=== PATIENT | male | born 1965 | race Caucasian/White ===

== ENCOUNTER 2023-04-03 19:22 | Emergency (ER) | payer OTHER, MEDICAID, SELFPAY ==
--- NOTE | ~2023-04-03 | XR_ITS ---
X-RAY LUMBAR SPINE X-RAY SACRUM/COCCYX CLINICAL HISTORY: Pain. COMPARISON: Radiograph lumbar spine 12/17/2015. TECHNIQUE: 3 views of the lumbar spine. 2 views of the sacrum/coccyx. FINDINGS: Lumbar spine: No evidence of acute compression deformity or traumatic subluxation. Subtle lucency at the level of the spinous process of T12, not present when compared to x-ray from 12/17/2015. Mild intervertebral disc height loss at L5-S1. Moderate facet arthropathy at L5-S1 leading to some degree of neural foraminal encroachment. Prominent anterior osteophytes at L3 and L4. No significant paraspinal soft tissue abnormality. Sacrum/coccyx: No displaced fractures or subluxation. SI joints are symmetric. No significant soft tissue abnormality. XR/XR sacrum coccyx min 2V IMPRESSION: 1. Subtle lucency at the level of the spinous process of T12, not present when compared to x-ray from 12/17/2015. This could represent a nondisplaced fracture. Correlate for point tenderness and if indicated further evaluation with a CT or MR could be obtained. 2. No additional fractures. No traumatic subluxation. 3. Intervertebral disc height loss and facet arthropathy at L5-S1 leading to certain degree of neural foraminal encroachment.
--- NOTE | ~2023-04-03 | CT_ITS ---
EXAMINATION: CT THORACIC SPINE WITHOUT CONTRAST CLINICAL INFORMATION: Question of T12 fracture. Pain. COMPARISON: None available. TECHNIQUE: CT This CT examination was performed using dose optimization techniques as appropriate, variously including the following: *Automated exposure control *Adjustment of mA and/or kV according to patient size (this includes techniques or standardized protocols for targeted exams where dose is matched to indication/reason for exam; i.e. extremities or head) *Use of iterative reconstruction technique DLP: 612 mGy-cm FINDINGS: No acute fracture or traumatic malalignment. Vertebral body heights maintained. Tiny endplate osteophytes project anteriorly within the lower dressing spine. Disc space heights relatively preserved. No significant degenerative changes otherwise. Healed left posterior third and fourth rib fractures. Paraspinal soft tissues unremarkable. Lungs are clear. No pneumothorax or pleural effusion. Normal heart size. No pericardial effusion. No mediastinal or hilar lymphadenopathy. Imaged thyroid gland is normal. Patulous esophagus. Imaged abdominal viscera are unremarkable. CT/CT thoracic spine wo IV con IMPRESSION: * No acute fracture or traumatic malalignment. * Healed left posterior third and fourth rib fractures.
--- NOTE | ~2023-04-03 | XR_ITS ---
X-RAY LUMBAR SPINE X-RAY SACRUM/COCCYX CLINICAL HISTORY: Pain. COMPARISON: Radiograph lumbar spine 12/17/2015. TECHNIQUE: 3 views of the lumbar spine. 2 views of the sacrum/coccyx. FINDINGS: Lumbar spine: No evidence of acute compression deformity or traumatic subluxation. Subtle lucency at the level of the spinous process of T12, not present when compared to x-ray from 12/17/2015. Mild intervertebral disc height loss at L5-S1. Moderate facet arthropathy at L5-S1 leading to some degree of neural foraminal encroachment. Prominent anterior osteophytes at L3 and L4. No significant paraspinal soft tissue abnormality. Sacrum/coccyx: No displaced fractures or subluxation. SI joints are symmetric. No significant soft tissue abnormality. XR/XR lumbar spine 2-3V IMPRESSION: 1. Subtle lucency at the level of the spinous process of T12, not present when compared to x-ray from 12/17/2015. This could represent a nondisplaced fracture. Correlate for point tenderness and if indicated further evaluation with a CT or MR could be obtained. 2. No additional fractures. No traumatic subluxation. 3. Intervertebral disc height loss and facet arthropathy at L5-S1 leading to certain degree of neural foraminal encroachment.
--- NOTE | ~2023-04-03 | XR_ITS ---
EXAMINATION: XR CHEST CLINICAL INFORMATION: Chest pain. COMPARISON: Chest radiograph 12/17/2015. TECHNIQUE: 2 views of the chest were obtained. FINDINGS: No significant cardiomediastinal contour abnormality. Prominent left-sided epicardial fat pad. Focal airspace opacities in the medial right lower lung/right infrahilar region. No pleural effusion or pneumothorax. Left-sided posterolateral third and fourth rib fractures with some degree of callus formation suggesting a subacute to chronic age. XR/XR chest 2V IMPRESSION: 1. Focal airspace opacities in the medial right lower lung/right infrahilar region are nonspecific; these could be related with volume averaging or aspiration/infiltrate. 2. Subacute to chronic appearing left-sided rib fractures, correlate with point tenderness.
[2023-04-03 20:18] VITALS: BP 155/94; PULSE 98; RESP 18; TEMP 36.8; O2SAT 97; BMI 28.1
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
[2023-04-03 23:01] VITALS: BP 128/80; PULSE 92; RESP 18; TEMP 36.8; O2SAT 97
[2023-04-04 01:03] VITALS: BP 114/81; PULSE 94; RESP 14; TEMP 36.6; O2SAT 96
--- NOTE | 2023-04-04 01:07 | PC.NURSE ---
Pt alert and oriented x 4, no apparent distress. Discharge instructions reviewed with pt and medications reviewed. Pt verbalized understanding.
== END 2023-04-04 01:09 | disposition home or self-care (01) ==
PROVIDERS: Emergency Provider Emergency Medicine
DX: S39.012A Strain of muscle, fascia and tendon of lower back, initial encounter (principal); R07.89 Other chest pain; M54.6 Pain in thoracic spine; M53.3 Sacrococcygeal disorders, not elsewhere classified; V43.52XA Car driver injured in collision with other type car in traffic accident, initial encounter; Y93.9 Activity, unspecified; Y92.410 Unspecified street and highway as the place of occurrence of the external cause; Y99.9 Unspecified external cause status
CPT/HCPCS: 71046; 72100; 72128; 72220; 99283; 99284

== ENCOUNTER 2023-04-23 16:25 | Outpatient (REF) | payer OTHER, MEDICAID, SELFPAY ==
[2023-04-23 17:35] LABS: MANUAL DIFF FLAG NO
[2023-04-23 17:54] LABS: Basophils Absolute Auto 0.1 X10*3/uL (0.0-0.2); Basophils Percent Auto 0.5 % (0-2); Eosinophils Absolute Auto 0.2 X10*3/uL (0.0-0.4); Eosinophils Percent Auto 1.9 % (0-4); Hematocrit 50.3 % (42.0-52.0); Hemoglobin 16.3 g/dl (14.0-18.0); Imm Gran Abs Auto 0.05 X10*3/uL (0.00-0.03); Imm Gran Pct Auto 0.5 % (0.0-0.4); Lymphocytes Absolute Auto 1.2 X10*3/uL (1.2-4.9); Lymphocytes Percent Auto 10.8 % (20-40); Mean Corpuscular HGB Conc 32.4 g/dl (31.0-36.0); Mean Corpuscular Hemoglobin 27.6 pg (27.0-33.0); Mean Corpuscular Volume 85.3 fL (80.0-98.0); Mean Platelet Volume 11.2 fL (9.4-12.4); Monocytes Absolute Auto 1.1 X10*3/uL (0.1-1.2); Monocytes Percent Auto 9.7 % (2-11); Neutrophils Absolute Auto 8.5 x10*3/uL (2.0-8.3); Neutrophils Percent Auto 76.6 % (45-73); Platelet Count 231 X10*3/uL (160-400); Red Cell Distribution Width 14.4 % (11.0-16.0); White Blood Count 11.1 X10*3/uL (4.8-10.8)
[2023-04-23 18:24] LABS: Microalbum/Creatinine Ratio Ur 58.9 ug/mg cr (<30)
[2023-04-23 18:26] LABS: Alanine Aminotransferase 31 U/L (0-40); Albumin Level 4.7 g/dL (3.5-5.0); Alkaline Phosphatase 101 U/L (39-117); Anion Gap 18 (12-20); Aspartate Amino Transferase 26 U/L (5-37); Bilirubin Direct 0.2 mg/dL (0.0-0.5); Bilirubin Total 0.8 mg/dL (0.0-1.0); Blood Urea Nitrogen 15 mg/dL (9-16); Calcium 10.5 mg/dL (8.4-10.2); Carbon Dioxide 25 mmol/L (22-29); Chloride 102 mmol/L (96-108); Cholesterol 221 mg/dL (<200); Estimated Glomerular Filt Rate > 60; Glucose Random 241 mg/dL (60-115); HDL Cholesterol 50 mg/dL (>40); LDL Cholesterol Calculated 126 mg/dL (<100); Potassium 4.5 mmol/L (3.3-5.1); Sodium 140 mmol/L (135-145); Total Protein 8.5 g/dL (6.5-8.0); Triglycerides 229 mg/dL (<150)
== END 2023-04-23 16:26 | disposition home or self-care (01) ==
LOC: HO.HHCL 16:25
PROVIDERS: Visit Provider Internal Medicine
DX: Z00.00 Encounter for general adult medical examination without abnormal findings (principal); E11.65 Type 2 diabetes mellitus with hyperglycemia
CPT/HCPCS: 36415; 80048; 80061; 80076; 82043; 85025